=== PATIENT | male | born 1995 | race Two or more races ===

== ENCOUNTER 2023-07-17 15:25 | Inpatient (IN) | payer OTHER ==
[~2023-07-17] VITALS: Ht 175.3 cm; Wt 81.7 kg
[2023-07-17 16:19] LABS: Basophils # (auto) 0 10 ^3/uL (0-0.2); Basophils % (auto) 0.1 % (0.0-2.0); Eosinophils # (auto) 0 10 ^3/uL (0-0.8); Hematocrit 48.5 % (41.0-53.0); Hemoglobin 16.1 g/dL (13.5-17.5); Lymphocytes # (auto) 0.9 10 ^3/uL (0.4-5.4); Lymphocytes % (auto) 7.3 % (10.0-50.0); Mean Corpuscular Hemoglobin 28.7 pg (28.0-32.0); Mean Corpuscular Hgb Conc. 33.2 g/dL (32.0-36.0); Mean Corpuscular Volume 86.4 fL (80.0-100.0); Monocytes # (auto) 0.7 10 ^3/uL (0-1.3); Monocytes % (auto) 5.8 % (0.0-12.0); Neutrophils # (auto) 10.8 10 ^3/uL (1.6-8.6); Neutrophils % (auto) 86.8 % (37.0-80.0); Nucleated Red Blood Cells % 0.1 %; Red Blood Cells 5.62 10^6/uL (4.5-5.90); Red Cell Distribution Width 13.1 % (11.8-14.3); White Blood Cell 12.4 10^3/uL (4.4-10.8)
[2023-07-17 16:41] LABS: Alanine Aminotransferase 64 U/L (7-40); Albumin 5.1 g/dL (3.2-4.8); Alkaline Phosphatase 77 U/L (46-116); Anion Gap 7 (5-15); Aspartate Aminotransferase 25 U/L (13-40); BUN/Creatinine Ratio 11.8 (10.0-20.0); Bilirubin, Total 0.7 mg/dL (0.2-1.0); Blood Urea Nitrogen 18 mg/dL (9-23); Calcium 10.1 mg/dL (8.7-10.4); Carbon Dioxide 27 mmol/L (20-30); Chloride 102 mmol/L (98-107); Glucose 103 mg/dL (74-106); Potassium 4.3 mmol/L (3.5-5.1); Sodium 136 mmol/L (136-145)
[2023-07-17 16:42] LABS: Total Protein 7.5 g/dL (5.7-8.2)
[2023-07-17] MEDS ORDERED: MORPHINE SULFATE INJ 2 MG/ml SYRG IV PRN (19:00)
[2023-07-17] MEDS ORDERED: LORazepam 2MG/ML-1ML VIAL IV ONE (19:00)
[2023-07-17] MEDS ORDERED: NITROGLYCERIN 0.4 MG SL TAB SL PRN (19:00)
[2023-07-17 19:30] VITALS: PULSE 80; RESP 18; O2SAT 98
[2023-07-17] MEDS: SODIUM CHLORIDE 0.9% 1,000 ML IV ONE ×2 (19:45→22:19)
[2023-07-17] MEDS: levETIRAcetam 1000 mg/100ml 100 ML IV ONE (19:45)
[2023-07-17 21:30] VITALS: PULSE 84
[2023-07-17 21:33] VITALS: BP 129/84; PULSE 75; RESP 14; TEMP 98.9; O2SAT 99
[2023-07-17] MEDS: levETIRAcetam 500 MG TAB PO ONE (22:19)
[2023-07-18] VITALS (10 sets, daily range): BP systolic 104–121; BP diastolic 49–75; PULSE 54–75; RESP 14–20; TEMP 97.9–98.7; O2SAT 94–99
[2023-07-18] MEDS: ENOXAPARIN SOD 40 MG/0.4 ML SYRINGE SC SCH (08:39)
[2023-07-18] MEDS: levETIRAcetam 500 MG TAB PO SCH (21:34)
[2023-07-18] MEDS: VENLAFAXINE HCL 37.5MG TABLET PO SCH (21:34)
[2023-07-19] VITALS (9 sets, daily range): BP systolic 102–133; BP diastolic 57–75; PULSE 54–76; RESP 12–21; TEMP 97.7–98.9; O2SAT 96–99
[2023-07-19 06:28] LABS: Basophils # (auto) 0 10 ^3/uL (0-0.2); Basophils % (auto) 0.6 % (0.0-2.0); Eosinophils # (auto) 0.1 10 ^3/uL (0-0.8); Hematocrit 43.7 % (41.0-53.0); Hemoglobin 14.4 g/dL (13.5-17.5); Lymphocytes # (auto) 1.6 10 ^3/uL (0.4-5.4); Lymphocytes % (auto) 48.2 % (10.0-50.0); Mean Corpuscular Hemoglobin 28.6 pg (28.0-32.0); Mean Corpuscular Hgb Conc. 32.9 g/dL (32.0-36.0); Mean Corpuscular Volume 86.9 fL (80.0-100.0); Monocytes # (auto) 0.4 10 ^3/uL (0-1.3); Monocytes % (auto) 11.1 % (0.0-12.0); Neutrophils # (auto) 1.3 10 ^3/uL (1.6-8.6); Neutrophils % (auto) 38.1 % (37.0-80.0); Nucleated Red Blood Cells % 0.1 %; Red Blood Cells 5.03 10^6/uL (4.5-5.90); Red Cell Distribution Width 13.4 % (11.8-14.3); White Blood Cell 3.4 10^3/uL (4.4-10.8)
[2023-07-19] MEDS: risperiDONE 1 MG TAB PO SCH ×2 (08:38→21:51)
[2023-07-19] MEDS: levETIRAcetam 500 MG TAB PO SCH (16:20)
[2023-07-20] VITALS (9 sets, daily range): BP systolic 92–129; BP diastolic 46–68; PULSE 51–81; RESP 15–19; TEMP 97.8–98.1; O2SAT 94–100
[2023-07-20 07:51] LABS: Alanine Aminotransferase 49 U/L (7-40); Albumin 4.2 g/dL (3.2-4.8); Alkaline Phosphatase 68 U/L (46-116); Anion Gap 9 (5-15); Aspartate Aminotransferase 25 U/L (13-40); BUN/Creatinine Ratio 15.7 (10.0-20.0); Blood Urea Nitrogen 19 mg/dL (9-23); Calcium 9.1 mg/dL (8.5-10.1); Carbon Dioxide 25 mmol/L (20-30); Chloride 106 mmol/L (98-107); Glucose 80 mg/dL (74-106); Potassium 4.1 mmol/L (3.5-5.1); Sodium 140 mmol/L (136-145)
[2023-07-20 07:52] LABS: Bilirubin, Total 0.6 mg/dL (0.2-1.0); Total Protein 5.9 g/dL (5.7-8.2)
[2023-07-21 05:00] VITALS: BP 135/57; PULSE 65; RESP 17; TEMP 97.8; O2SAT 100
[2023-07-21 08:00] VITALS: PULSE 66
[2023-07-21 09:00] VITALS: BP 119/61; PULSE 63; RESP 18; TEMP 98.3; O2SAT 100
[2023-07-21] MEDS: levETIRAcetam 500 MG TAB PO SCH (09:14)
[2023-07-21] MEDS: VENLAFAXINE HCL 37.5MG TABLET PO SCH (09:14)
[2023-07-21 13:00] VITALS: BP 110/63; PULSE 77; RESP 20; TEMP 98.6; O2SAT 100
[2023-07-21] MEDS ORDERED: levETIRAcetam 500 MG TAB PO SCH (22:00)
== END 2023-07-21 17:00 | DRG 101 ==
LOC: EDBD 15:25 → ER 15:25 → EEVIPCON 15:25 → TELE 18:57 → TELE-WESTW 21:39
PROVIDERS: ADMIT Internal Medicine; ATTEND Internal Medicine
DX: G40.909 Epilepsy, unspecified, not intractable, without status epilepticus (principal); F32.A Depression, unspecified; F20.9 Schizophrenia, unspecified; E86.0 Dehydration; Z91.199 Patient's noncompliance with other medical treatment and regimen due to unspecified reason; Z63.4 Disappearance and death of family member; Z83.3 Family history of diabetes mellitus; Z56.0 Unemployment, unspecified
CPT/HCPCS: 36415; 70450; 70551; 80053; 85025; 96365; G0378